=== PATIENT | female | born 1955 | race Caucasian/White ===

== ENCOUNTER 2017-01-09 17:18 | Emergency (ER) | payer MEDICARE, OTHER ==
[~2017-01-09] VITALS: Ht 170.2 cm; Wt 55.0 kg
[~2017-01-09 17:18] MED LIST: ASPI325T PO; ATOR40TA16 PO; GABA100C4 PO; PANT20TA2 PO
[2017-01-09 17:20] VITALS: BP 185/86; PULSE 91; RESP 17; TEMP 97.9; O2SAT 97
[2017-01-09 17:49] VITALS: BP 135/86; PULSE 83; RESP 18; O2SAT 100
--- NOTE | 2017-01-09 18:26 | PD ---
HPI Chief Complaint: Customer Account Coordinator Problem Time Seen by Provider: 17:51 Travel History International Travel<30 days: No Contact w/Intl Traveler<30days: No Traveled to known affect area: No History of Present Illness HPI The patient was seen and examined in the presence of the nurse. Patient complains of pain in her pacer site. It's located in the left upper chest wall. Duration 4 days. Severity is moderate. No alleviating factors.no fever or injury PFSH Past Medical History Arthritis: Yes (HAND) Asthma: No Autoimmune Disease: No Anxiety: No Depression: No Heart Rhythm Problems: Yes (third degree heart block) Cancer: No Cardiac Catheterization: No Cardiovascular Problems: Yes (pacemaker) High Cholesterol: Yes Chemotherapy: No Chest Pain: No Congestive Heart Failure: No COPD: Yes Cerebrovascular Accident: Yes (x4 dysarthria) Diabetes: No Endocrine: No GERD: No Genitourinary: Yes Headaches: Yes (when not wearing glasses) Hiatal Hernia: No Hypertension: No Immune Disorder: No Implanted Vascular Access Dvce: Yes Kidney Stones: No Musculoskeletal: Yes Neurologic: Yes Psychiatric: No Reproductive: No Respiratory: Yes (copd) Immunizations Current: Yes Migraines: No Myocardial Infarction: No Radiation Therapy: No Renal Failure: No Seizures: No Sickle Cell Disease: No Sleep Apnea: Yes Thyroid Disease: No Ulcer: No Past Surgical History Abdominal Surgery: Yes (ABD AORTIC REPAIR-2012) AICD: No Arteriovenous Shunt: No Cardiac Surgery: Yes (AORTIC REPAIR-2012, pacer placed 2015) Section: Yes Coronary Artery Bypass Graft: No Ear Surgery: No Endocrine Surgery: No Eye Surgery: No Genitourinary Surgery: No Gynecologic Surgery: Yes ( [place] ) Insulin Pump: No Joint Replacement: No Oral Surgery: No Pacemaker: Yes (2015) Thoracic Surgery: No Other Surgery: Yes Family History Family Myocardial Infarction: Yes Social History Alcohol Use: No (UTO) Tobacco Use: No (UTO) Substance Use: No Allergies-Medications (Allergen,Severity, Reaction): Coded Allergies: Codeine (Verified Allergy, Mild, 09/04/16) Demerol (Verified Allergy, Mild, 09/04/16) Reported Meds & Prescriptions Reported Meds & Active Scripts Active Reported Aspirin 325 Mg Tab 325 Mg PO DAILY Atorvastatin (Atorvastatin Calcium) 40 Mg Tab 40 Mg PO DAILY Gabapentin 100 Mg Cap 100 Mg PO BID Pantoprazole (Pantoprazole Sodium) 20 Mg Tab 20 Mg PO DAILY Review of Systems General / Constitutional: No: Fever HENT: No: Headaches Cardiovascular: Positive: Chest Pain or Discomfort Respiratory: No: Cough Gastrointestinal: No: Abdominal Pain Genitourinary: No: Frequency Musculoskeletal: No: Myalgias Skin: No Rash Physical Exam Narrative CARDIOVASCULAR: Regular rate and rhythm without murmur. Extremities showed no edema or varicosities. SKIN: Focused skin assessment reveals no rash or ulcers. Skin is warm and dry. Palpation shows no induration or nodules. NECK: Symmetrical appearance, midline trachea. No mass or crepitus. Thyroid without enlargement, tenderness, or mass. RESPIRATORY: Respiratory effort unlabored, no retractions or use of accessory muscles. Breath sounds are clear and symmetric. GASTROINTESTINAL: Abdomen soft, non-tender, nondistended. Positive bowel sounds. No hepato-splenomegaly, or palpable masses. No guarding. Gen.: Pleasant well-nourished 61-year-old female with left upper chest wall at the pacer site Data Data Last Documented VS Vital Signs Date Time Temp Pulse Resp B/P Pulse Ox O2 Delivery O2 Flow Rate FiO2 01/09/17 17:49 93 18 100 Room Air 01/09/17 17:49 135/86 01/09/17 17:20 97.9 Orders Chest, Single Ap (01/09/17 ) [facility] Medical Decision Making Medical Screen Exam Complete: Yes Emergency Medical Condition: Yes Medical Record Reviewed: Yes Differential Diagnosis Pacemaker infection, pacemaker failure, chest wall pain Narrative Course I have reviewed the patient's electronic medical record. Patient was admitted May 06, 2016 for CVA I reviewed her chest x-ray which does not show anything acute. No fracture of pacer wires No sign of infection or trauma on exam Patient in sinus rhythm without ectopy on extended cardiac monitoring They will call their die repairer stamping office tomorrow to see if they will give them a follow-up in the near future. They did call today and they were told to come here instead of coming to the office to have the pacer checked. Diagnosis Primary Impression: Non-cardiac chest pain Additional Instructions: Follow-up with die repairer stamping Med/Other Pt SpecificInfo: Other Disposition: 01 DISCHARGE HOME Condition: Stable Arben Parekh MD Jan 09, 2017 18:26
--- NOTE | 2017-01-09 18:51 | RADRPT ---
EXAM DATE/TIME: 01/09/2017 18:03 [facility] COMPARISON: CHEST SINGLE AP, February 14, 2016, 8:52. INDICATIONS : Patient is having pain where her pacemaker was inserted. She states pain for five days. MEDICAL HISTORY : Cerebrovascular disease. SURGICAL HISTORY : Pacemaker. Abdominal aortic aneurysm repair. ENCOUNTER: Initial ACUITY: 4 - 6 days PAIN SCORE: 5/10 LOCATION: Left chest FINDINGS: The lungs are clear without infiltrate, nodule, or mass except for biapical areas of scarring not guillaume nged. There is no appreciable pleural effusion for technique. Heart and mediastinum are unremarkabl e. Left subclavian transvenous pacer wires are present with tips in the right atrium and right ventri robe. There is evidence for prior median sternotomy. CONCLUSION: No acute cardiopulmonary disease. Elsa Adams MD on January 09, 2017 at 18:48 Board Certified Radiologist. This report was verified electronically.
== END 2017-01-09 19:15 | disposition home or self-care (01) ==
LOC: NEPE 17:18
DX: R07.89 Other chest pain (principal); Z95.0 Presence of cardiac pacemaker
CPT/HCPCS: 71010; 99283

== ENCOUNTER 2017-03-06 18:45 | Inpatient (IN) | payer MEDICARE, OTHER ==
[~2017-03-06] VITALS: Ht 170.2 cm; Wt 67.0 kg
[2017-03-06 18:47] VITALS: BP 156/72; PULSE 72; RESP 16; TEMP 98.2; O2SAT 99
[2017-03-06] MEDS ORDERED: LIDOCAINE HCL 1% 20 ML VIAL INFIL ONE (19:45)
[2017-03-06] MEDS ORDERED: BUPIVACAINE HCL PF 0.5% 10 ML VIAL INFIL ONE (19:45)
[2017-03-06] MEDS ORDERED: AMPICILLIN-SULBACTAM INJ 3 GM in SODIUM CHLORIDE 0.9% INJ 100 ML IV ONE (19:45)
[2017-03-06] MEDS ORDERED: LIDOCAINE HCL 1% 30 ML VIAL ONE (19:50)
--- NOTE | 2017-03-06 19:51 | PD ---
HPI Chief Complaint: Laceration/Skin Injury Time Seen by Provider: 19:41 Travel History International Travel<30 days: No Contact w/Intl Traveler<30days: No Traveled to known affect area: No History of Present Illness HPI 61-year-old [id number]-nudbhygy white female presents to emergency department for evaluation of a dog bite. This had occurred sometime around 8:30 in the morning. She was taking care of 2 of her family pit bulls when they got into a fight. She states that one of the dogs bit her in the left middle finger. He complains of pain and swelling. She has difficulty moving the finger due to pain. She states that she was able to move it more freely initially. She also states that she has a ring on and she cannot get the ring off because the fingers are swollen. She denies any sensory loss. She is up-to-date with immunizations. Dogs are up-to-date with immunizations. PFSH Past Medical History Arthritis: Yes (HAND) Asthma: No Autoimmune Disease: No Anxiety: No Depression: No Heart Rhythm Problems: Yes (third degree heart block) Cancer: No Cardiac Catheterization: No Cardiovascular Problems: Yes High Cholesterol: Yes Chemotherapy: No Chest Pain: No Congestive Heart Failure: No COPD: Yes Cerebrovascular Accident: Yes Diabetes: No Endocrine: No GERD: No Genitourinary: Yes Headaches: Yes (when not wearing glasses) Hiatal Hernia: No Heparin Induced Thrombocytopen: No Hypertension: No Immune Disorder: No Implanted Vascular Access Dvce: Yes Kidney Stones: No Musculoskeletal: Yes Neurologic: Yes Psychiatric: No Reproductive: No Respiratory: Yes (copd) Immunizations Current: Yes Migraines: No Myocardial Infarction: No Radiation Therapy: No Renal Failure: No Seizures: No Sickle Cell Disease: No Sleep Apnea: Yes Thyroid Disease: No Ulcer: No Tetanus Vaccination: < 5 Years Influenza Vaccination: Yes Past Surgical History Abdominal Surgery: Yes (ABD AORTIC REPAIR-2012) AICD: No Arteriovenous Shunt: No Cardiac Surgery: Yes (AORTIC REPAIR-2012, pacer placed 2015) Section: Yes Coronary Artery Bypass Graft: No Ear Surgery: No Endocrine Surgery: No Eye Surgery: No Genitourinary Surgery: No Gynecologic Surgery: Yes ( [place] ) Insulin Pump: No Joint Replacement: No Neurologic Surgery: No Oral Surgery: No Pacemaker: Yes (2015) Thoracic Surgery: No Other Surgery: Yes Family History Family Myocardial Infarction: Yes Social History Alcohol Use: No (UTO) Tobacco Use: No (UTO) Substance Use: No Allergies-Medications (Allergen,Severity, Reaction): Coded Allergies: Codeine (Verified Allergy, Mild, 03/06/17) Demerol (Verified Allergy, Mild, 03/06/17) Reported Meds & Prescriptions Reported Meds & Active Scripts Active Reported Aspirin 325 Mg Tab 325 Mg PO DAILY Atorvastatin (Atorvastatin Calcium) 40 Mg Tab 40 Mg PO DAILY Gabapentin 100 Mg Cap 100 Mg PO BID Pantoprazole (Pantoprazole Sodium) 20 Mg Tab 20 Mg PO DAILY Review of Systems Except as stated in HPI: all other systems reviewed are Neg General / Constitutional: No: Fever, Chills Musculoskeletal: Positive: Arthralgias, Limited ROM, Weakness, Edema, Pain, No : Myalgias Neurologic: Positive: Slurred Speech (chronic), No: Paresthesia Physical Exam Narrative GENERAL: Well-developed, well-nourished in no acute distress. Nontoxic appearing. HEAD: Normocephalic, atraumatic. EYES: Pupils equal round and reactive. Extraocular motions intact. No scleral icterus. No injection or drainage. ENT: TMs clear without erythema. The external auditory canals clear. Nose: clear . Posterior pharynx is pink and moist. No tonsillar edema or exudate. Uvula midline. Airway patent. NECK: Trachea midline.Supple, nontender, moves head freely. No central bony tenderness or spasm. CARDIOVASCULAR: Regular rate and rhythm without murmurs, gallops, or rubs. RESPIRATORY: Clear to auscultation. Breath sounds equal bilaterally. No wheezes , rales, or rhonchi. GASTROINTESTINAL: Abdomen soft, non-tender, nondistended. No hepato-splenomegaly , or palpable masses. No guarding. EXTREMITIES: No clubbing, cyanosis. Examination of the left hand reveals a moderately swollen middle finger with a constricting band ring. She has a dogbite laceration to the mid volar pad. There does not appear to be any joint involvement. Laceration measures approximately 1.5 cm. She has intact gross sensation with good distal Refill. She is able to extend but has difficulty flexing it due to pain and swelling. BACK: Nontender without deformity or crepitance. No flank tenderness. Data Data Last Documented VS Vital Signs Date Time Temp Pulse Resp B/P Pulse Ox O2 Delivery O2 Flow Rate FiO2 03/06/17 18:47 98.2 72 16 156/72 99 Orders Finger ([id number]) (03/06/17 ) Ampicillin-Sulbactam Inj (Unasyn Inj) (03/06/17 19:45) Bupivacaine Pf 0.5% Inj (Marcaine Pf 0.5 (03/06/17 19:45) Lidocaine 1% Inj (Xylocaine 1% Inj) (03/06/17 19:45) Iv Access Insert/Monitor (03/06/17 19:35) Lidocaine 1% Inj (Xylocaine 1% Inj) (03/06/17 19:50) Consult Hand Surgery (03/06/17 ) Diet Npo (03/07/17 Breakfast) Consent (03/06/17 21:21) Admit Order (Ed Use Only) (03/06/17 21:29) MDM Medical Decision Making Medical Screen Exam Complete: Yes Emergency Medical Condition: Yes Medical Record Reviewed: Yes Interpretation(s) Last 24 hours Impressions Finger X-Ray 03/06/17 0000 Signed Impressions: Service Date/Time: March 19:54 - CONCLUSION: Unremarkable examination of the left third finger. Akira Villalobos Jr., MD Differential Diagnosis MDM: High Differential diagnoses: Fracture, sprain, strain, dislocation, contusion, neurovascular injury, dog bite Narrative Course Patient's ring is removed after presentation into the examination room. IV access is obtained. Patient's given 3 g of Unasyn IV. X-ray, and digital block. Exploration of the wound. Patient's laceration does extend into the flexor digitorum profundus tendon. I have discussed the case with Dr. Del Angel who will evaluate the patient in the morning for possible exploration and tendon repair. She has requested that the patient be nothing by mouth after midnight and continue IV Unasyn. She has requested that the patient be admitted to the medical service under observation status. I've spoken with Supa Cee who agreed to admit the patient to observation status. Nothing by mouth after midnight and continue Unasyn IV antibiotics. The patient is aware the clinical findings and require admission with evaluation by hand surgeon. The patient verbally states understanding and agrees with the treatment plan Procedures Procedure Narrative Constricting band formed body removal: Using a electric ring cutter the constricting band is removed from around the base of her left middle finger without incidence. Patient tolerates procedure well without complications. Patient's given a digital block to her left middle finger using 0.5% Marcaine and 1% lidocaine plain. Diagnosis Primary Impression: dog bite left middle finger with flexor tendon laceration Admitting Information Admitting Physician Requests: Observation Condition: Stable Bernardo Roe Mar 06, 2017 19:50
--- NOTE | 2017-03-06 20:16 | RADRPT ---
EXAM DATE/TIME: 03/06/2017 19:54 [facility] COMPARISON: No previous studies available for comparison. INDICATIONS : Trauma, laceration, left 3rd digit MEDICAL HISTORY : None. SURGICAL HISTORY : None. ENCOUNTER: Initial ACUITY: 1 day PAIN SCORE: 7/10 LOCATION: Left 3rd digit FINDINGS: Examination of the third digit of the left hand demonstrates no evidence of fracture or dislocation. No radiopaque foreign bodies are seen. The soft tissues are intact. CONCLUSION: Unremarkable examination of the left third finger. Akira Villalobos Jr., MD on March 06, 2017 at 20:14 Board Certified Radiologist. This report was verified electronically.
[2017-03-06] MEDS ORDERED: NALOXONE HCL 0.4 MG/ML AMP IV PRN (23:30)
[2017-03-06] MEDS ORDERED: LACTULOSE SYRUP 20 GM/30 ML CUP PO PRN (23:30)
[2017-03-06] MEDS ORDERED: MAGNESIUM HYDROXIDE SUSP 30 ML CUP PO PRN (23:30)
[2017-03-06] MEDS ORDERED: SENNOSIDES 8.6 MG TAB PO PRN (23:30)
[2017-03-06] MEDS ORDERED: SODIUM CHLORIDE 0.9% FLUSH 10 ML FLUSH IV FLUSH PRN (23:30)
[2017-03-06] MEDS ORDERED: BISACODYL 10 MG SUPP RECTAL PRN (23:30)
[2017-03-06] MEDS ORDERED: TEMAZEPAM 15 MG CAP PO PRN (23:30)
[2017-03-06] MEDS ORDERED: ACETAMINOPHEN 325 MG TAB PO PRN (23:30)
[2017-03-06 23:47] VITALS: BP 156/67; PULSE 84; RESP 16; O2SAT 96
[2017-03-07] MEDS: SODIUM CHLOR 0.9% 1000 ML INJ 1,000 ML IV SCH ×2 (00:19→07:56)
[2017-03-07 00:53] VITALS: BP 120/60; PULSE 87; RESP 20; TEMP 98.2; O2SAT 97
[2017-03-07] MEDS: ACETAMINOPHEN 325 MG TAB PO PRN ×4 (01:12→21:40)
[2017-03-07] MEDS: AMPICILLIN-SULBACTAM INJ 3 GM in SODIUM CHLORIDE 0.9% INJ 100 ML IV SCH ×4 (01:13→21:42)
[2017-03-07 03:48] VITALS: BP 124/80; PULSE 74; RESP 20; TEMP 98.1; O2SAT 98
[2017-03-07] MEDS: DOCUSATE SODIUM 50 MG/SENNA 8.6 MG TAB PO SCH ×2 (07:52→21:41)
[2017-03-07] MEDS: SODIUM CHLORIDE 0.9% FLUSH 10 ML FLUSH IV FLUSH SCH ×2 (07:52→21:50)
[2017-03-07 08:00] VITALS: BP 117/57; PULSE 77; RESP 18; TEMP 98; O2SAT 98
--- NOTE | 2017-03-07 09:00 | HHI.HP ---
HPI [facility] Primary Care Physician Supa Chairez M.D. Admission Diagnosis dog bite left middle finger with flexor tendon laceration Diagnoses: Chief Complaint: DOG BITE Travel History International Travel<30 Days: No Contact w/Intl Traveler <30 Da: No Traveled to Known Affected Are: No History of Present Illness This a pleasant 61-year-old white female with significant past medical history of strokes with residual expressive aphasia, prior abdominal aortic repair, pacemaker, myocardial infarction, CAD, hypertension. Patient presented to the emergency room for evaluation of dog bite. According to the patient, she was taking care of to family people's when they got into a fight and she try to separate them. She got bitten on the left middle finger. She complained of initial pain and swelling, no streaking up the arm. She had difficulty moving the arm due to the pain. She denies any fever, no chills. She had a ring on that she could not remove because of the swelling. She was up-to-date on immunizations as were the dogs. She presented to the emergency room where she was evaluated. It appeared that the laceration extended into the flexor digitorum profundus tendon. Case was discussed with Dr. Del Angel who requested that the patient be kept nothing by mouth and continue IV Unasyn. Patient had an x-ray of the finger that was unremarkable. The ring was removed after she had a digital block. Laboratory workup currently pending. Patient denies any chest pain, shortness of breath, no recent fever, no chills. Indicates she has been doing well. . She follows up regularly with her sales and marketing engineer Dr. Mukherjee and pacemaker check regularly. Patient is admitted for further evaluation and treatment. Review of Systems Constitutional: DENIES: Diaphoretic episodes, Fatigue, Fever, Weight gain, Weight loss, Chills, Dizziness, Change in appetite, Night Sweats Endocrine: DENIES: Abnorml menstrual pattern, Heat/cold intolerance, Polydipsia , Polyuria, Polyphagia Eyes: DENIES: Blurred vision, Diplopia, Eye inflammation, Eye pain, Vision loss , Photosensitivity, Double Vision Ears, nose, mouth, throat: DENIES: Tinnitus, Hearing loss, Vertigo, Nasal discharge, Oral lesions, Throat pain, Hoarseness, Ear Pain, Running Nose, Epistaxis, Sinus Pain, Toothache, Odynophagia Respiratory: DENIES: Apneas, Cough, Snoring, Wheezing, Hemoptysis, Sputum production, Shortness of breath Cardiovascular: DENIES: Chest pain, Palpitations, Syncope, Dyspnea on Exertion , PND, Lower Extremity Edema, Orthopnea, Claudication Gastrointestinal: DENIES: Abdominal pain, Black stools, Bloody stools, Constipation, Diarrhea, Nausea, Vomiting, Difficulty Swallowing, Anorexia Musculoskeletal: COMPLAINS OF: Joint pain (bite to middle finger left hand, painful, tender, no streaking ), DENIES: Muscle aches, Stiffness, Joint Swelling, Back pain, Neck pain Integumentary: DENIES: Abnormal pigmentation, Pruritus, Rash, Nail changes, Breast masses, Breast skin changes, Nipple discharge Hematologic/lymphatic: DENIES: Bruising, Lymphadenopathy Immunologic/allergic: DENIES: Eczema, Urticaria Neurologic: COMPLAINS OF: Speech Problems (chronic from previous stroke ), DENIES: Abnormal gait, Headache, Localized weakness, Paresthesias, Seizures, Tremor, Poor Balance Psychiatric: DENIES: Anxiety, Confusion, Mood changes, Depression, Hallucinations, Agitation, Suicidal Ideation, Homicidal Ideation, Delusions Past Family Social History Past Medical History 1. Aortic repair in 2012, at [facility]. 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 2. Tuberculosis in the past 3. Chronic obstructive pulmonary disease 4. Prior tobacco abuse 5. Caesarean section 6. Arthritis 7. Hypertension 8. Diabetes, diet controlled 9. Hyperlipidemia 10. [place] 11. CVA x 4, residual speech expressive aphasia and right hand weakness. Last stroke February 2016, had TPA 12. Bradycardia with AV dissociation, had PPM per Dr. Mukherjee (during stroke admission in February 14, 2016) Past Surgical History ruptured AAA repair, c section, Reported Medications Reported Meds & Active Scripts Active Reported Aspirin 325 Mg Tab 325 Mg PO DAILY Atorvastatin (Atorvastatin Calcium) 40 Mg Tab 40 Mg PO DAILY Gabapentin 100 Mg Cap 100 Mg PO BID Pantoprazole (Pantoprazole Sodium) 20 Mg Tab 20 Mg PO DAILY Allergies: Coded Allergies: Codeine (Verified Allergy, Mild, 03/06/17) Demerol (Verified Allergy, Mild, 03/06/17) Active Ordered Medications Inpatient Medications Acetaminophen (Tylenol) 650 mg Q4H PRN PO pain Last administered on 03/07/17t 01 :12; Start 03/06/17 at 23:30 Ampicillin Sodium/ Sulbactam Sodium/ Sodium Chloride (Unasyn Inj/NS Inj) 100 ml @ 200 mls/hr Q6H IV Last administered on 03/07/17 07:52; Start 03/07/17 at 02: 00 Bisacodyl (Dulcolax Supp) 10 mg DAILY PRN RECTAL SEVERE CONSITIPATION; Start at 23:30 Bupivacaine HCl (Marcaine Pf 0.5% Inj) 10 ml ONCE ONCE INFIL ; Start 03/06/17 at 19:45; Stop 03/06/17 at 19:46; Status DC Lactulose 30 ml 30 ml DAILY PRN PO SEVERE CONSITIPATION; Start 03/06/17 at 23:30 Lidocaine HCl 20 ml 20 ml ONCE ONCE INFIL ; Start 03/06/17 at 19:45; Stop at 19:46; Status DC Magnesium Hydroxide (Milk Of Magnesia Liq) 30 ml Q12H PRN PO MILD - MODERATE CONSTIPATION; Start 03/06/17 at 23:30 Naloxone HCl (Narcan Inj) 0.4 mg UNSCH PRN IV SEE LABEL COMMENTS; Start at 23:30 Senna/Docusate Sodium (Felicia-Colace) 1 tab BID PO ; Start 03/07/17 at 09:00 Sennosides (Senokot) 17.2 mg Q12H PRN PO MODERATE - SEVERE CONSTIPATION; Start 03/06/17 at 23:30 Sodium Chloride (NS 1000 ml Inj) 1,000 ml @ 100 mls/hr Q10H IV Last administered on 03/07/17 00:19; Start 03/06/17 at 23:22 Sodium Chloride (NS Flush) 2 ml BID IV FLUSH ; Start 03/07/17 at 09:00 Temazepam (Restoril) 15 mg HS PRN PO INSOMNIA; Start 03/06/17 at 23:30 Family History Review from previous medical record shows positive history of myocardial infarction in her father who at age 65. Brother had a myocardial infarction at the age of 50. Social History The patient is single, lives son and DIL. Has grown children. She quit smoking 2008. Does not drink. No substance abuse. Physical Exam Vital Signs Vital Signs Date Time Temp Pulse Resp B/P Pulse Ox O2 Delivery O2 Flow Rate FiO2 03/07/17 08:00 98.0 77 18 117/57 98 03/07/17 03:48 98.1 74 20 124/80 98 03/07/17 00:53 98.2 87 20 120/60 97 03/06/17 23:47 84 16 156/67 96 Room Air 03/06/17 18:47 98.2 72 16 156/72 99 Physical Exam GENERAL: This is a well-nourished, well-developed patient, in no apparent distress. SKIN: No rashes, ecchymoses or lesions. Cool and dry. HEAD: Atraumatic. Normocephalic. No temporal or scalp tenderness. EYES: Pupils equal round and reactive. Extraocular motions intact. No scleral icterus. No injection or drainage. ENT: Nose without bleeding, purulent drainage or septal hematoma. Throat without erythema, tonsillar hypertrophy or exudate. Uvula midline. Airway patent. NECK: Trachea midline. No JVD or lymphadenopathy. Supple, nontender, no meningeal signs. CARDIOVASCULAR: Regular rate and rhythm without murmurs, gallops, or rubs. RESPIRATORY: Clear to auscultation. Breath sounds equal bilaterally. No wheezes , rales, or rhonchi. GASTROINTESTINAL: Abdomen soft, non-tender, nondistended. No hepato-splenomegaly , or palpable masses. No guarding. MUSCULOSKELETAL: Left hand has a bulky dressing, intact sensation to fingertips , left radial pulse 2+. No streaking noted. No other joint abnormality. NEUROLOGICAL: Awake and alert and oriented 3. Expressive aphasia, speech dysarthric. Able to provide most of the history. Slight right hand weakness which is chronic. No other neuro deficits. Imaging Last Impressions Finger X-Ray 03/06/17 0000 Signed Impressions: Service Date/Time: March 19:54 - CONCLUSION: Unremarkable examination of the left third finger. Akira Villalobos Jr., MD Assessment and Plan Problem List: (1) dog bite left middle finger (2) Expressive aphasia (3) COPD (chronic obstructive pulmonary disease) (4) History of CVA with residual deficit (5) HTN (hypertension) (6) Status post placement of cardiac pacemaker (7) Hx of aortic aneurysm repair (8) DM (diabetes mellitus) Assessment and Plan Admit to Dr. Jacob 61-year-old white female presented to the emergency room for evaluation of the bite, she was found with a laceration into the flexor digitorum profundus tendon. -Continue with IV Unasyn, follow cultures Dr. Del Angel has been consulted for surgical evaluation. At this time we will keep patient nothing by mouth. -Keep left arm elevated Pain management is ordered Continue with cautious hydration History of CVA 4, has residual expressive aphasia Continue with aspirin Hypertension, stable Continue with home medications COPD, stable denies any shortness of breath, no wheezing. No longer smokes. -monitor sats -duonebs PRN ordered. Type 2 diabetes, diet-controlled Accu-Cheks before meals and at bedtime with insulin therapy as needed Keep patient nothing by mouth Laboratory workup currently pending. I have asked that nursing contact me if any abnormalities are noted. We will order chest x-ray preop We will follow-up a chest x-ray and laboratory workup. SCDs for DVT prophylaxis PPI for GI prophylaxis Plan of care has been discussed with the patient, attending and registered nurse. Further management of the patient will be dependent on the hospital course This patient was seen by myself and Dr. Jacob, this H&P is written on her behalf Physician Certification 2 Midnight Certification Type: Admission for Inpatient Services Order for Inpatient Services The services are ordered in accordance with Medicare regulations or non- Medicare payer requirements, as applicable. In the case of services not specified as inpatient-only, they are appropriately provided as inpatient services in accordance with the 2-midnight benchmark. Estimated LOS (days): 2 2 days is the estimated time the patient will need to remain in the hospital, assuming treatment plan goals are met and no additional complications. Post-Hospital Plan: Not yet determined Problem Qualifiers (1) COPD (chronic obstructive pulmonary disease): Qualified Code: J44.9 - Chronic obstructive pulmonary disease, unspecified COPD type (2) HTN (hypertension): Qualified Code: I10 - Essential hypertension (3) DM (diabetes mellitus): Qualified Code: E11.59 - Type 2 diabetes mellitus with other circulatory complication, without long-term current use of insulin Ana Paula Quintanilla Mar 07, 2017 09:00
[2017-03-07] MEDS ORDERED: RESP: ALBUTEROL 2.5 MG/IPRATROPIUM 0.5 MG NEB (PRN) NEB (09:30)
[2017-03-07] MEDS ORDERED: GLUCAGON 1 MG/ML VIAL OTHER PRN (09:45)
[2017-03-07] MEDS ORDERED: DEXTROSE 50% IN WATER 50 ML VIAL(D50) IV PRN (09:45)
[2017-03-07] MEDS ORDERED: GENTAMICIN SULFATE 80 MG/2 ML VIAL ONE (09:57)
[2017-03-07] MEDS ORDERED: LIDOCAINE HCL 2% PF SOLN 10 ML VIAL ONE (09:57)
--- NOTE | 2017-03-07 10:03 | RADRPT ---
EXAM DATE/TIME: 03/07/2017 09:38 [place] COMPARISON: CHEST SINGLE AP, January 09, 2017, 18:03. INDICATIONS : Evaluate for pneumonia, pneumothorax, or communicable disease. Pre-operative for hand surgery. MEDICAL HISTORY : None. SURGICAL HISTORY : Pacemaker. Aortic repair. ENCOUNTER: Initial ACUITY: 1 day PAIN SCORE: 0/10 LOCATION: Bilateral chest FINDINGS: A single view of the chest demonstrates the lungs to be symmetrically aerated without evidence of mas s, infiltrate or effusion. Sterile wires are in previous bypass are noted. Pacemaker on left. The ca rdiomediastinal contours are unremarkable. Osseous structures are intact. CONCLUSION: No acute disease. Anthony Mari MD FACR on March 07, 2017 at 10:01 Board Certified Radiologist. This report was verified electronically.
[2017-03-07] MEDS ORDERED: FAMOTIDINE 20 MG/2 ML VIAL ONE (10:21)
[2017-03-07] MEDS ORDERED: fentaNYL CITRATE 250 MCG/5 ML AMP ONE (10:22)
[2017-03-07] MEDS ORDERED: MIDAZOLAM HCL 2 MG/2 ML VIAL ONE (10:22)
[2017-03-07] MEDS ORDERED: ONDANSETRON HCL 4 MG/2 ML VIAL ONE ×2 (10:22)
[2017-03-07 10:52] LABS: WHITE BLOOD COUNT 6.4 TH/MM3 (4.0-11.0)
[2017-03-07 10:53] LABS: AUTOMATED NEUTROPHIL # 4.3 TH/MM3 (1.8-7.7); BASOPHIL % 0.7 % (0.0-2.0); EOSINOPHIL # 0.1 TH/MM3 (0-0.4); EOSINOPHIL % 0.9 % (0.0-4.0); HEMATOCRIT 38.8 % (35.0-46.0); HEMO FLAGS DIFF FINAL; LYMPH % 21.6 % (9.0-44.0); LYMPHOCYTE # 1.4 TH/MM3 (1.0-4.8); MEAN CELL VOLUME 89.4 FL (80.0-100.0); MEAN CORPUSCULAR HEMOGLOBIN 28.7 PG (27.0-34.0); MEAN CORPUSCULAR HGB CONC 32.1 % (32.0-36.0); MONO % 10.2 % (0.0-8.0); NEUT % 66.6 % (16.0-70.0); PLATELET COUNT 157 TH/MM3 (150-450); RED BLOOD COUNT 4.34 MIL/MM3 (4.00-5.30); RED CELL DISTRIBUTION WIDTH 13.8 % (11.6-17.2)
[2017-03-07 10:54] LABS: INTERNATIONAL NORMALIZED RATIO 1.1 RATIO; PROTHROMBIN TIME - PATIENT 11.8 SEC (9.8-11.6)
[2017-03-07] MEDS ORDERED: NEOMYCIN/POLYMYXIN 1 ML G.U. IRRIGANT TOPICAL ONE (11:01)
[2017-03-07 11:14] LABS: ALT (GPT) 16 U/L (10-53); ANION GAP 7 MEQ/L (5-15); AST (GOT) 13 U/L (15-37); BICARBONATE 26.7 MEQ/L (21.0-32.0); BLOOD UREA NITROGEN 11 MG/DL (7-18); CHLORIDE 105 MEQ/L (98-107); GLOMERULAR FILTRATION RATE 71 ML/MIN (>89); POTASSIUM 3.7 MEQ/L (3.5-5.1); SODIUM (NA) 139 MEQ/L (136-145)
[2017-03-07 11:17] LABS: ALKALINE PHOSPHATASE 85 U/L (45-117); TOTAL BILIRUBIN ADULT 1.1 MG/DL (0.2-1.0)
[2017-03-07] MEDS ORDERED: BACITRACIN TOP OINT 15 GM TUBE ONE (11:42)
[2017-03-07] MEDS ORDERED: PROPOFOL 200 MG/20 ML AMP IV ONE (12:00)
[2017-03-07] MEDS ORDERED: DO NOT ADM ANY ANTICOAGULANT DRUGS PRN (12:30)
--- NOTE | 2017-03-07 12:52 | PD.ORT.PN ---
Subjective Subjective Remarks Patient denies pain left middle finger Objective Vitals Vital Signs Date Time Temp Pulse Resp B/P Pulse Ox O2 Delivery O2 Flow Rate FiO2 03/07/17 08:00 98.0 77 18 117/57 98 03/07/17 03:48 98.1 74 20 124/80 98 03/07/17 00:53 98.2 87 20 120/60 97 03/06/17 23:47 84 16 156/67 96 Room Air 03/06/17 18:47 98.2 72 16 156/72 99 I/O 03/06/17 03/06/17 03/06/17 03/07/17 03/07/17 03/07/17 07:00 15:00 23:00 07:00 15:00 23:00 Intake Total 600 ml Balance 600 ml Intake IV Total 600 ml # Voids 2 Result Diagram: 03/07/17 1025 03/07/17 1025 Other Results Laboratory Tests Test 03/07/17 10:25 Prothrombin Time 11.8 SEC (9.8-11.6) Prothromb Time International 1.1 RATIO Ratio Imaging Last 24 hours Impressions Chest X-Ray 03/07/17 0000 Signed Impressions: Service Date/Time: Tuesday, March 07, 2017 09:38 - CONCLUSION: No acute disease. Anthony Mari MD FACR Objective Remarks Dorsal blocking splint in place, <2 sec capillary refill left middle finger, ROM deferred Assessment & Plan Assessment and Plan 61yF PMHx significant for abdominal aortic aneurysm repair as well as CVAs POD0 s/p I&D left middle finger flexor tendon sheath as well as repair of partial laceration left middle finger FDP -Keep dorsal blocking splint in place, Nonweightbearing left hand, Elevate left hand -Continue IV Ab at least 24-48 more hours, follow cultures -Likely d/c on oral antibiotics Sat/Sun and followup in office Friday with hand therapy -will continue to follow Raquel Del Angel MD Mar 07, 2017 12:52
[2017-03-07] MEDS: INSULIN ASPART SUPPLEMENTAL SCALE SQ SCH ×2 (15:35→21:00)
[2017-03-07 16:00] VITALS: BP 148/65; PULSE 90; RESP 18; TEMP 97.5; O2SAT 94
--- NOTE | 2017-03-07 16:27 | MB ---
cc: NATHANIEL BLACK DATE OF CONSULTATION 03/07/2017 REASON FOR CONSULTATION Dog bite left middle finger with concern for infection as well as laceration of the flexor tendon. HISTORY OF PRESENT ILLNESS Anna Ruiz is a 61-year-old right-hand dominant female with a very significant past medical history including multiple strokes and CVAs with residual expressive aphasia, prior abdominal aortic repair, pacemaker, history of myocardial infarction, coronary artery disease and hypertension. The patient presented to the emergency room on 03/06/2017 after sustaining a dog bite to the volar and dorsal aspects of the left middle finger. The patient states that these were her dogs. She states the dog bite occurred yesterday morning around 8:30. She presented to the emergency room due to swelling of the finger. She was unable to remove the ring from her finger and presented for evaluation. She denies any paresthesias. The ring was then removed by the emergency room and a digital block was performed over the left middle finger. I was called by the physician clinical trials assistant for concern for partial versus complete laceration of the flexor digitorum profundus. The wound was irrigated by the physician clinical trials assistant and the patient was started on IV Unasyn. The patient was admitted overnight for IV antibiotics and evaluation. On evaluation she reports mild pain over the left middle finger. Denies any paresthesias. She denies any significant prior injuries to the left hand. Again, she is right hand dominant. She does follow up with her high lift driver. PAST MEDICAL HISTORY Aortic repair in 2012, COPD, hypertension, myocardial infarction, CVA x4 with residual expressive aphasia with weakness of the right hand, bradycardia with AV dissociation. PAST SURGICAL HISTORY Repair of abdominal aortic aneurysm, . MEDICATIONS 1. Aspirin 325 milligrams. 2. Atorvastatin. 3. Gabapentin 100 milligrams. 4. Pantoprazole. ALLERGIES CODEINE AND DEMEROL. SOCIAL HISTORY The patient lives with her son. States that she has quit tobacco use in 2008. Denies any alcohol or drug use. PHYSICAL EXAMINATION GENERAL: The patient is alert and oriented, does have expressive aphasia but I am able to understand the patient. DIRECTED EXAMINATION: Exam of the left hand shows a laceration over the volar aspect of the left middle finger at the level of middle phalanx. There is also a separate laceration over the dorsum of the PIP joint of the left middle finger. Sensation is intact on the radial and ulnar side. She has less than 2-second capillary refill to the finger. She is able to fire FDS and FDP. There is some purulence coming from the wound on range of motion of the finger. IMAGING STUDIES X-rays of the left hand were reviewed which shows no evidence of fracture or dislocation. ASSESSMENT/PLAN A 61-year-old right-hand dominant female with past medical history significant for abdominal aortic aneurysm as well as stroke. The patient has a dog bite to the left middle finger with concern for infection, concern for partial flexor tendon laceration. Treatment options discussed with the patient. She elected to proceed with surgical intervention including irrigation debridement, repair of any injured structures including the flexor tendon and digital nerve. She elects to proceed. She understands she is at risk for wound complications, infection, sepsis, need for additional surgeries, a lengthy recovery if the tendon is involved, pain, paresthesias and she elected to proceed. The patient will remain admitted to the medical team for evaluation of her multiple medical problems and also using IV antibiotics. The patient will be taken to the operating room at the earliest available time. MD MARIN Ness/CHARANJIT /12:41 PM /4:01 PM [email or web address]
[2017-03-07 20:46] VITALS: BP 130/66; PULSE 87; RESP 16; TEMP 97.8; O2SAT 94
[2017-03-07] MEDS: GABAPENTIN 100 MG CAP PO SCH (21:41)
[2017-03-08] VITALS: BP 125/62; PULSE 88; RESP 17; TEMP 99.1; O2SAT 97
[2017-03-08] MEDS: SODIUM CHLOR 0.9% 1000 ML INJ 1,000 ML IV SCH ×2 (05:22→06:00)
[2017-03-08] MEDS: AMPICILLIN-SULBACTAM INJ 3 GM in SODIUM CHLORIDE 0.9% INJ 100 ML IV SCH ×4 (05:58→21:19)
[2017-03-08] MEDS: INSULIN ASPART SUPPLEMENTAL SCALE SQ SCH ×4 (06:06→21:00)
[2017-03-08 08:00] VITALS: BP 133/73; PULSE 76; RESP 17; TEMP 95.5; O2SAT 96
[2017-03-08] MEDS: SODIUM CHLORIDE 0.9% FLUSH 10 ML FLUSH IV FLUSH SCH ×2 (10:42→21:19)
[2017-03-08] MEDS: DOCUSATE SODIUM 50 MG/SENNA 8.6 MG TAB PO SCH ×2 (10:44→21:19)
[2017-03-08] MEDS: GABAPENTIN 100 MG CAP PO SCH ×2 (10:44→21:19)
[2017-03-08] MEDS: PANTOPRAZOLE SOD 20 MG DELAYED RELEASE TAB PO SCH (10:44)
[2017-03-08] MEDS: ATORVASTATIN 40 MG TAB PO SCH (10:44)
[2017-03-08 12:00] VITALS: BP 177/87; PULSE 84; RESP 18; TEMP 96.9; O2SAT 100
--- NOTE | 2017-03-08 14:28 | HHI.PR ---
Subjective Remarks s/p I&D left middle finger flexor tendon sheath as well as repair of partial laceration left middle finger FDP 03/07 doing well post op having pain intact sensation no cp no sob no fever daughters at bsd Objective Objective Results - Vital Signs Date Time Temp Pulse Resp B/P Pulse Ox O2 Delivery O2 Flow Rate FiO2 03/08/17 12:00 96.9 84 18 177/87 100 03/08/17 08:00 95.5 76 17 133/73 96 03/08/17 00:00 99.1 88 17 125/62 97 03/07/17 20:46 97.8 87 16 130/66 94 03/07/17 16:00 97.5 90 18 148/65 94 03/07/17 14:26 18 I/O 03/07/17 03/07/17 03/07/17 03/08/17 03/08/17 03/08/17 07:00 15:00 23:00 07:00 15:00 23:00 Intake Total 600 ml 850 ml 480 ml 480 ml 240 ml Output Total 800 ml 800 ml Balance 600 ml 850 ml -320 ml -320 ml 240 ml Intake Oral 480 ml 480 ml 240 ml IV Total 600 ml Other 850 ml Output Urine Total 800 ml 800 ml # Voids 2 3 # Bowel Movements 1 Result Diagram: 03/07/17 1025 03/07/17 1025 Imaging Last Impressions Finger X-Ray 03/06/17 0000 Signed Impressions: Service Date/Time: March 19:54 - CONCLUSION: Unremarkable examination of the left third finger. Akira Villalobos Jr., MD Other Results Date/Time Procedure Status Source Growth 03/07/17 11:10 Gram Stain - Final Resulted Wound Finger 03/07/17 11:10 Wound Culture Resulted Wound Finger Pending 03/07/17 11:10 Fungal Smear - Final Resulted Wound Finger NO FUNGAL ELEMENTS SEEN. 03/07/17 11:10 Fungal Culture Resulted Wound Finger Pending 03/07/17 11:10 Acid Fast Stain Received Wound Finger Pending 03/07/17 11:10 Mycobacterial Culture Received Wound Finger Pending ROS Neuro/MS: Other (LEFT HAND PAIN ) Physical Exam Physical Exam GENERAL: This is a well-nourished, well-developed patient, in no apparent distress. SKIN: No rashes, ecchymoses or lesions. Cool and dry. HEAD: Atraumatic. Normocephalic. No temporal or scalp tenderness. EYES: Pupils equal round and reactive. Extraocular motions intact. No scleral icterus. No injection or drainage. ENT: Nose without bleeding, purulent drainage or septal hematoma. Throat without erythema, tonsillar hypertrophy or exudate. Uvula midline. Airway patent. NECK: Trachea midline. No JVD or lymphadenopathy. Supple, nontender, no meningeal signs. CARDIOVASCULAR: Regular rate and rhythm without murmurs, gallops, or rubs. RESPIRATORY: Clear to auscultation. Breath sounds equal bilaterally. No wheezes , rales, or rhonchi. GASTROINTESTINAL: Abdomen soft, non-tender, nondistended. No hepato-splenomegaly , or palpable masses. No guarding. MUSCULOSKELETAL: Left hand has a bulky dressing, intact sensation to fingertips. No streaking noted. No other joint abnormality. NEUROLOGICAL: Awake and alert and oriented 3. Expressive aphasia, speech dysarthric. Able to provide most of the history. Slight right hand weakness which is chronic. No other neuro deficits. Urinary Catheter: No Vascular Central Line Catheter: No A/P Diagnosis: (1) dog bite left middle finger (2) Expressive aphasia (3) COPD (chronic obstructive pulmonary disease) (4) History of CVA with residual deficit (5) HTN (hypertension) (6) Status post placement of cardiac pacemaker (7) Hx of aortic aneurysm repair (8) DM (diabetes mellitus) Assessment and Plan 61-year-old white female presented to the emergency room for evaluation of the bite, she was found with a laceration into the flexor digitorum profundus tendon. s/p I&D left middle finger flexor tendon sheath as well as repair of partial laceration left middle finger FDP 6/2 -continue with post op care -Continue with IV Unasyn, follow cultures Dr. Del Angel's input is appreciated -Keep left arm elevated Pain management is ordered -Dressing change per Dr. Del Angel History of CVA 4, has residual expressive aphasia Continue with aspirin Hypertension, stable Continue with home medications COPD, stable denies any shortness of breath, no wheezing. No longer smokes. -monitor sats -duonebs PRN ordered. Type 2 diabetes, diet-controlled Accu-Cheks before meals and at bedtime with insulin therapy as needed labs and cxr reviewed, stable poss dc today or tomorrow continue with tx as above SCDs for DVT prophylaxis PPI for GI prophylaxis D/W RN D/W pt and daughters D/W Dr. Jacob This patient was seen by myself and Dr. Jacob, this note is written on her behalf Problem Qualifiers (1) COPD (chronic obstructive pulmonary disease): Qualified Code: J44.9 - Chronic obstructive pulmonary disease, unspecified COPD type (2) HTN (hypertension): Qualified Code: I10 - Essential hypertension (3) DM (diabetes mellitus): Qualified Code: E11.59 - Type 2 diabetes mellitus with other circulatory complication, without long-term current use of insulin Ana Paula Quintanilla Mar 08, 2017 14:28
[2017-03-08] MEDS ORDERED: cloNIDine HCL 0.1 MG TAB PO PRN (14:30)
[2017-03-08] MEDS: oxyCODONE/ACETAMINOPHEN 7.5 MG/325 MG TAB PO PRN (15:20)
[2017-03-08 16:00] VITALS: BP 122/64; PULSE 84; RESP 16; TEMP 97.8; O2SAT 100
[2017-03-08] MEDS ORDERED: OXYC1TAB35 PO (16:40)
[2017-03-08] MEDS ORDERED: AUGM875T3 PO (16:40)
--- NOTE | 2017-03-08 17:01 | HHI.DCPOC ---
Discharge Care Plan Diagnosis: (1) dog bite left middle finger Your Health Problems Are: Inflammation Goals to Promote Your Health * To prevent worsening of your condition and complications * To maintain your health at the optimal level Directions to Meet Your Goals Take your medications as prescribed Follow your dietary instruction Follow activity as directed Keep your appointments as scheduled Take your immunizations and boosters as scheduled If your symptoms worsen call your PCP, if no PCP go to Urgent Care Center or Emergency Room Smoking is Dangerous to Your Health. Avoid second hand smoke Call the 24-hour hour crisis hotline for domestic abuse at Ana Paula Quintanilla Mar 08, 2017 17:01
[2017-03-08 20:00] VITALS: BP 117/59; PULSE 72; RESP 17; TEMP 97.4; O2SAT 98
--- NOTE | 2017-03-08 20:25 | MP ---
cc: RAQUEL DEL ANGEL DATE OF SURGERY: 03/07/2017. PREOPERATIVE DIAGNOSIS: Dog bite left middle finger with concern for infection of the flexor tendon sheath as well as partial laceration of the flexor tendons. POSTOPERATIVE DIAGNOSIS: 1. Flexor tenosynovitis, left middle finger. 2. Partial laceration, flexor digitorum profundus. OPERATIVE PROCEDURE PERFORMED: 1. Irrigation and debridement flexor tendon sheath left middle finger including skin, subcutaneous tissue and muscle. 2. Repair of partial laceration to the flexor digitorum profundus left middle finger in no glo land. SURGEON: Dr. Raquel Del Angel ANESTHESIA: General and local. TOURNIQUET TIME: The tourniquet time was 35 minutes at 250 mmHg. SPECIMEN: Culture x1. INDICATIONS FOR THE PROCEDURE: Anna Ruiz is a 61-year-old right hand-dominant female with significant past medical history for abdominal aortic repair as well as multiple history of CVAs who presented after a dog bite to the left middle finger. The wound was irrigated and explored in the emergency room and there was concern for partial laceration of the flexor digitorum profundus. The patient was admitted for medical clearance as well as IV antibiotics. She elected to proceed with surgical intervention. The risks were explained to include sepsis, wound complication, infection, need for additional surgeries, stiffness, pain, need for therapy, rupture of the tendon repair and she elected to proceed. DESCRIPTION OF THE PROCEDURE IN DETAIL: The patient was identified in the preoperative holding area and the correct extremity was marked. The patient was taken to the operating room where anesthesia was induced. The left upper extremity was prepped and draped in the normal sterile fashion. The prior laceration over the volar aspect of the left middle finger was extended in a mid lateral approach proximally and distally. A culture was taken as there was some purulence in the flexor tendon sheath. Three liters of antibiotic saline was irrigated along the flexor tendon sheath of the left middle finger. Upon inspection of the finger, the FDS tendon was intact. There was approximately 60% to 70% laceration of the flexor digitorum profundus tendon between the A2 and A4 pulleys. After the wound was copiously irrigated, the partial laceration of the flexor digitorum profundus was repaired with Prolene due to concern for infection as I did not want to use FiberWire. This was repaired with 4-0 Prolene in a Singh type suture as well as a mattress repair. Then 6-0 nylon was used to perform an epitendinous repair. Upon range of motion of the finger, there was good gliding with no catching over the A2 or A4 pulleys. The skin was then closed loosely with simple sutures with chromic both volarly and dorsally. The tourniquet was released. Hemostasis was obtained. There was less than 2-second capillary refill to the finger. The patient had good tenodesis with range of motion of the finger. She was placed into a dorsal blocking splint. Approximately 8 mL of 2% lidocaine with no epinephrine was used to perform a digital block over the finger. The patient will remain in the hospital for IV antibiotics and will be discharged likely in several days on oral antibiotics. I will see her next week in conjunction with therapy for a custom splint as well as discussion with the patient about the importance of compliance with the flexor tendon protocol. Again the patient understands she is at risk for stiffness and rupture of the repair as well as infection. MD MARIN Ness/JOANNA /12:47 PM /8:13 PM [email or web address]
[2017-03-09] VITALS: BP 119/56; PULSE 79; RESP 17; TEMP 98.2; O2SAT 98
[2017-03-09] MEDS: AMPICILLIN-SULBACTAM INJ 3 GM in SODIUM CHLORIDE 0.9% INJ 100 ML IV SCH ×2 (02:08→08:24)
[2017-03-09] MEDS: INSULIN ASPART SUPPLEMENTAL SCALE SQ SCH ×2 (05:22→11:00)
[2017-03-09 08:00] VITALS: BP 116/55; PULSE 80; RESP 16; TEMP 95.6; O2SAT 97
[2017-03-09] MEDS: PANTOPRAZOLE SOD 20 MG DELAYED RELEASE TAB PO SCH (08:24)
[2017-03-09] MEDS: GABAPENTIN 100 MG CAP PO SCH (08:24)
[2017-03-09] MEDS: ATORVASTATIN 40 MG TAB PO SCH (08:24)
[2017-03-09] MEDS: SODIUM CHLORIDE 0.9% FLUSH 10 ML FLUSH IV FLUSH SCH (08:24)
[2017-03-09] MEDS: DOCUSATE SODIUM 50 MG/SENNA 8.6 MG TAB PO SCH (08:24)
--- NOTE | 2017-03-09 11:02 | HHI.PR ---
Subjective Remarks s/p I&D left middle finger flexor tendon sheath as well as repair of partial laceration left middle finger FDP 03/07 pain is manageable no fever no cp no sob intact sensation family at bsd Objective Objective Results - Vital Signs Date Time Temp Pulse Resp B/P Pulse Ox O2 Delivery O2 Flow Rate FiO2 03/09/17 08:00 95.6 80 16 116/55 97 03/09/17 00:00 98.2 79 17 119/56 98 03/08/17 20:00 97.4 72 17 117/59 98 03/08/17 16:00 97.8 84 16 122/64 100 03/08/17 12:00 96.9 84 18 177/87 100 I/O 03/08/17 03/08/17 03/08/17 03/09/17 03/09/17 03/09/17 07:00 15:00 23:00 07:00 15:00 23:00 Intake Total 480 ml 624 ml 340 ml 340 ml Output Total 800 ml Balance -320 ml 624 ml 340 ml 340 ml Intake Oral 480 ml 240 ml 240 ml 240 ml IV Total 384 ml 100 ml 100 ml Output Urine Total 800 ml # Voids 3 2 2 # Bowel Movements 1 Result Diagram: 03/07/17 1025 03/07/17 1025 Imaging Last Impressions Finger X-Ray 03/06/17 0000 Signed Impressions: Service Date/Time: March 19:54 - CONCLUSION: Unremarkable examination of the left third finger. Akira Villalobos Jr., MD Other Results Date/Time Procedure Status Source Growth 03/07/17 11:10 Gram Stain - Final Complete Wound Finger 03/07/17 11:10 Wound Culture - Final Complete Pasteurella Multocida 03/07/17 11:10 Fungal Smear - Final Resulted Wound Finger NO FUNGAL ELEMENTS SEEN. 03/07/17 11:10 Fungal Culture Resulted Wound Finger Pending 03/07/17 11:10 Acid Fast Stain Received Wound Finger Pending 03/07/17 11:10 Mycobacterial Culture Received Wound Finger Pending ROS General: No: Fatigue, Weakness HEENT: No: Sore Throat, Dysphagia Cardiac: No: Chest Pain, Edema, Palpitations Pulmonary: No: Cough, SOB, Wheezing GI: No: Abdominal Pain, BM, Diarrhea, N/V /MOTOR TESTER: No: Dysuria, Urgency Neuro/MS: Other (left hand pain ), No: Lightheaded, Confusion Psych: No: Anxiety, Depression Skin: No: Itching, Rash Physical Exam Physical Exam GENERAL: This is a well-nourished, well-developed patient, in no apparent distress. SKIN: No rashes, ecchymoses or lesions. Cool and dry. HEAD: Atraumatic. Normocephalic. No temporal or scalp tenderness. EYES: Pupils equal round and reactive. Extraocular motions intact. No scleral icterus. No injection or drainage. ENT: Nose without bleeding, purulent drainage or septal hematoma. Throat without erythema, tonsillar hypertrophy or exudate. Uvula midline. Airway patent. NECK: Trachea midline. No JVD or lymphadenopathy. Supple, nontender, no meningeal signs. CARDIOVASCULAR: Regular rate and rhythm without murmurs, gallops, or rubs. RESPIRATORY: Clear to auscultation. Breath sounds equal bilaterally. No wheezes , rales, or rhonchi. GASTROINTESTINAL: Abdomen soft, non-tender, nondistended. No hepato-splenomegaly , or palpable masses. No guarding. MUSCULOSKELETAL: Left hand has a bulky dressing, intact sensation to fingertips. No streaking noted. No other joint abnormality. NEUROLOGICAL: Awake and alert and oriented 3. Expressive aphasia, speech dysarthric. Able to provide most of the history. Slight right hand weakness which is chronic. No other neuro deficits. Urinary Catheter: No Vascular Central Line Catheter: No A/P Diagnosis: (1) dog bite left middle finger (2) Expressive aphasia (3) COPD (chronic obstructive pulmonary disease) (4) History of CVA with residual deficit (5) HTN (hypertension) (6) Status post placement of cardiac pacemaker (7) Hx of aortic aneurysm repair (8) DM (diabetes mellitus) Assessment and Plan 61-year-old white female presented to the emergency room for evaluation of the bite, she was found with a laceration into the flexor digitorum profundus tendon. s/p I&D left middle finger flexor tendon sheath as well as repair of partial laceration left middle finger FDP 6/2 -continue with post op care -Continue with IV Unasyn, culture positive for Pasteurella multocida Dr. Del Angel's input is appreciated -Keep left arm elevated Pain management -Dressing change per Dr. Del Angel -she plans to do that today. History of CVA 4, has residual expressive aphasia Continue with aspirin Hypertension, stable Continue with home medications COPD, stable denies any shortness of breath, no wheezing. No longer smokes. -monitor sats -duonebs PRN ordered. Type 2 diabetes, diet-controlled Accu-Cheks before meals and at bedtime with insulin therapy as needed SCDs for DVT prophylaxis PPI for GI prophylaxis Dressing change to be done today per Dr. Del Angel Plan to discharge patient after dressing done D/W RN D/W pt and daughters D/W Dr. Jacob This patient was seen by myself and Dr. Jacob, this note is written on her behalf Problem Qualifiers (1) COPD (chronic obstructive pulmonary disease): Qualified Code: J44.9 - Chronic obstructive pulmonary disease, unspecified COPD type (2) HTN (hypertension): Qualified Code: I10 - Essential hypertension (3) DM (diabetes mellitus): Qualified Code: E11.59 - Type 2 diabetes mellitus with other circulatory complication, without long-term current use of insulin Ana Paula Quintanilla Mar 09, 2017 11:02
--- NOTE | 2017-03-09 11:48 | PD.ORT.PN ---
Subjective Subjective Remarks Patient denies pain left middle finger Objective Vitals Vital Signs Date Time Temp Pulse Resp B/P Pulse Ox O2 Delivery O2 Flow Rate FiO2 03/09/17 08:00 95.6 80 16 116/55 97 03/09/17 00:00 98.2 79 17 119/56 98 03/08/17 20:00 97.4 72 17 117/59 98 03/08/17 16:00 97.8 84 16 122/64 100 03/08/17 12:00 96.9 84 18 177/87 100 I/O 03/08/17 03/08/17 03/08/17 03/09/17 03/09/17 03/09/17 07:00 15:00 23:00 07:00 15:00 23:00 Intake Total 480 ml 624 ml 340 ml 340 ml Output Total 800 ml Balance -320 ml 624 ml 340 ml 340 ml Intake Oral 480 ml 240 ml 240 ml 240 ml IV Total 384 ml 100 ml 100 ml Output Urine Total 800 ml # Voids 3 2 2 # Bowel Movements 1 Result Diagram: 03/07/17 1025 03/07/17 1025 Imaging Last 24 hours Impressions Chest X-Ray 03/07/17 0000 Signed Impressions: Service Date/Time: Tuesday, March 07, 2017 09:38 - CONCLUSION: No acute disease. Anthony Mari MD FACR Objective Remarks Dorsal blocking splint in place, <2 sec capillary refill left middle finger, ROM deferred Assessment & Plan Assessment and Plan 61yF PMHx significant for abdominal aortic aneurysm repair as well as CVAs POD2 s/p I&D left middle finger flexor tendon sheath as well as repair of partial laceration left middle finger FDP -Keep dorsal blocking splint in place, Nonweightbearing left hand, Elevate left hand -d/c on antibiotics per primary team -okay to d/c per hand surgery, will see patient in office tomorrow in combination with hand therapy Raquel Del Angel MD Mar 09, 2017 11:48
[2017-03-09 12:00] VITALS: BP 121/63; PULSE 71; RESP 16; TEMP 97.2; O2SAT 99
--- NOTE | 2017-03-09 12:46 | HHI.DS ---
Discharge Summary Admission Date Mar 06, 2017 at 23:24 Discharge Date: Mar 09, 2017 Admitting Diagnosis dog bite left middle finger with flexor tendon laceration (1) dog bite left middle finger (2) Expressive aphasia (3) COPD (chronic obstructive pulmonary disease) (4) History of CVA with residual deficit (5) HTN (hypertension) (6) Status post placement of cardiac pacemaker (7) Hx of aortic aneurysm repair (8) DM (diabetes mellitus) CBC/BMP: 03/07/17 1025 03/07/17 1025 Significant Findings Laboratory Tests Test 03/07/17 10:25 Monocytes (%) (Auto) 10.2 % (0.0-8.0) Prothrombin Time 11.8 SEC (9.8-11.6) Estimat Glomerular Filtration 71 ML/MIN (>89) Rate Total Bilirubin 1.1 MG/DL (0.2-1.0) Aspartate Amino Transf 13 U/L (15-37) (AST/SGOT) Imaging Last Impressions Chest X-Ray 03/07/17 0000 Signed Impressions: Service Date/Time: Tuesday, March 07, 2017 09:38 - CONCLUSION: No acute disease. Anthony Mari MD FACR Finger X-Ray 03/06/17 0000 Signed Impressions: Service Date/Time: March 19:54 - CONCLUSION: Unremarkable examination of the left third finger. Akira Villalobos Jr., MD Hospital Course This a pleasant 61-year-old white female with significant past medical history of strokes with residual expressive aphasia, prior abdominal aortic repair, pacemaker, myocardial infarction, CAD, hypertension. Patient presented to the emergency room for evaluation of dog bite. According to the patient, she was taking care of 2 family dogs when they got into a fight and she try to separate them. She got bitten on the left middle finger. She complained of initial pain and swelling, no streaking up the arm. She had difficulty moving the arm due to the pain. She denies any fever, no chills. She had a ring on that she could not remove because of the swelling. She was up-to-date on immunizations as were the dogs. She presented to the emergency room where she was evaluated. It appeared that the laceration extended into the flexor digitorum profundus tendon. Case was discussed with Dr. Del Angel who requested that the patient be kept nothing by mouth and continue IV Unasyn. Patient had an x-ray of the finger that was unremarkable. The ring was removed after she had a digital block. Patient denied any chest pain, shortness of breath, no recent fever, no chills. Indicated she has been doing well. . She follows up regularly with her inorganic chemical technician Dr. Mukherjee and pacemaker check regularly. Patient was admitted for further evaluation and treatment. (1) dog bite left middle finger (2) Expressive aphasia (3) COPD (chronic obstructive pulmonary disease) (4) History of CVA with residual deficit (5) HTN (hypertension) (6) Status post placement of cardiac pacemaker (7) Hx of aortic aneurysm repair (8) DM (diabetes mellitus) During the course of the hospitalization, the following took place: 61-year-old white female presented to the emergency room for evaluation of the bite, she was found with a laceration into the flexor digitorum profundus tendon. s/p I&D left middle finger flexor tendon sheath as well as repair of partial laceration left middle finger FDP 03/07 -Consulted hand surgeon, Dr. Del Angel. Surgery recommended. -continue with post op care -Continue with IV Unasyn, cultures followed- positive for Pasteurella multocida -Kept left arm elevated Pain management ordered -Dressing change per Dr. Del Angel - recommended to not change at home and f/u in am. Cleared for dc History of CVA 4, has residual expressive aphasia Continued with aspirin -stable. Hypertension, stable Continued with home medications COPD, stable denies any shortness of breath, no wheezing. No longer smokes. -monitored sats -duonebs PRN ordered. -no resp. distress. Type 2 diabetes, diet-controlled Accu-Cheks before meals and at bedtime with insulin therapy as needed -Glucose stable. SCDs for DVT prophylaxis PPI for GI prophylaxis pt. stable, pain well controlled Dressing changed POD #1, tolerated well pt. discharged home Patient instructed to follow up with Dr. Del Angel in the morning Prescriptions given for pain medication and oral antibiotics She was discharge in stable condition Discharge plan was discussed with patient and family. Pt Condition on Discharge: Stable Discharge Disposition: Discharge Home Discharge Instructions DIET: Follow Instructions for: Heart Healthy Diet Activities you can perform: Weight Bearing as Kayode Follow up Referrals: Hand Surgery - [address] DEL ANGEL New Medications: Amoxicillin-Clavulanate (Augmentin) 875-125 Mg Tab 1 TAB PO BID Infection #20 Ref 0 TAB Oxycodone-Acetaminophen (Oxycodone-Acetaminophen) 7.5-325 mg Tab 1 TAB PO Q6HR PRN PAIN 6-10 #30 TAB Continued Medications: Aspirin (Aspirin) 325 Mg Tab 325 MG PO DAILY #30 Ref 0 TAB Atorvastatin (Atorvastatin) 40 Mg Tab 40 MG PO DAILY #30 Ref 0 TAB Gabapentin (Gabapentin) 100 Mg Cap 100 MG PO BID #60 Ref 0 CAP Pantoprazole (Pantoprazole) 20 Mg Tab 20 MG PO DAILY #30 Ref 0 TAB Ana Paula QuintanillaP Mar 09, 2017 12:46
[2017-03-09] MEDS: oxyCODONE/ACETAMINOPHEN 7.5 MG/325 MG TAB PO PRN (12:50)
== END 2017-03-09 13:12 | disposition home or self-care (01) | DRG 513 ==
LOC: HOR 18:45 → NEDA 21:31 → OBSVTOIN 23:24 → NEPHCDU 03-07 00:29 → N07B 03-07 10:17 → N07A 03-07 14:18
PROVIDERS: ADMIT Internal Medicine; ATTEND Internal Medicine
PROC: 0LQ80ZZ Repair Left Hand Tendon, Open Approach (ICD-10-PCS; principal; 2017-03-07 10:32)
DX: S66.123A Laceration of flexor muscle, fascia and tendon of left middle finger at wrist and hand level, initial encounter (principal); I44.2 Atrioventricular block, complete; A28.0 Pasteurellosis; Y92.009 Unspecified place in unspecified non-institutional (private) residence as the place of occurrence of the external cause; W54.0XXA Bitten by dog, initial encounter; I10 Essential (primary) hypertension; J44.9 Chronic obstructive pulmonary disease, unspecified; E78.5 Hyperlipidemia, unspecified; I48.91 Unspecified atrial fibrillation; E11.9 Type 2 diabetes mellitus without complications; I25.10 Atherosclerotic heart disease of native coronary artery without angina pectoris; K21.9 Gastro-esophageal reflux disease without esophagitis; Z95.0 Presence of cardiac pacemaker; Z87.891 Personal history of nicotine dependence; I69.220 Aphasia following other nontraumatic intracranial hemorrhage; I25.2 Old myocardial infarction
CPT/HCPCS: 64450; 71010; 73140; 80053; 82948; 85025; 85610; 87015; 87070; 87102; 87116; 87205; 87206; 96365; J0295; J1580; J2250; J2405; J3010; J7030